=== PATIENT | female | born 1995 | race Caucasian/White ===

== ENCOUNTER → 2019-08-07 17:10 | Outpatient (CLI) | payer OTHER, SELFPAY ==
[2019-08-07 17:35] LABS: Basophils % 0.2 % (0.1-2.0); Eosinophils # 0.1 K/mm3 (0.0-0.4); Eosinophils % 0.8 % (0.1-12.0); Hemoglobin 13.9 g/dL (12.2-16.2); Lymphocytes # 4.1 K/mm3 (0.7-4.5); Lymphocytes % 32.8 % (10-50); Mean Corpuscular HGB Conc 31.6 g/dL (31.8-35.4); Mean Corpuscular Volume 88.6 fl (81-99); Mean Platelet Volume 8.8 fl (7.4-10.4); Monocytes # 0.5 K/mm3 (0.1-1.0); Monocytes % 4.1 % (1.7-9.3); Neutrophils # 7.8 K/mm3 (1.8-7.8); Platelet Count 300 K/mm3 (142-424); Red Blood Count 4.97 M/mm3 (4.20-5.40); Red Cell Distribution Width 13.1 % (11.5-17.5); White Blood Count 12.6 K/mm3 (4.8-10.8)
[2019-08-07 18:59] LABS: Alanine Aminotransferase 27 U/L (12-78); Albumin Level 3.7 gm/dL (3.4-5.0); Alkaline Phosphatase 86 U/L (46-116); Anion Gap 15.3 mEq/L (5-15); Aspartate Amino Transferase 11 U/L (15-37); Bilirubin,Total 0.4 mg/dL (0.2-1.0); Blood Urea Nitrogen 16 mg/dL (7-18); Carbon Dioxide 25 mmol/L (21.0-32.0); Chloride 106 mmol/L (98-107); Chol/HDL Ratio 3.7 (1-3.5); Cholesterol 152 mg/dL (140-200); Estimated Glomerular Filt Rate 103 ml/min (>60); GFR (African American) 124 ML/MIN (>60); Globulin 3.8 gm/dl (1.3-3.2); Glucose 80 mg/dL (74-106); HDL Cholesterol 41 mg/dL (29-89); LDL Cholesterol 98 mg/dL (0-130); Potassium 4.3 mmoL/L (3.5-5.1); Sodium 142 mmol/L (136-145); T4 (Thyroxine) 9.3 ug/dl (4.7-13.3); Thyroid Stimulating Hormone 1.19 uIU/ml (0.358-3.740); Total Protein,Serum 7.5 gm/dL (6.4-8.2); Triglycerides 67 mg/dL (30-200); VLDL Cholesterol 13 mg/dL (0-40)
== END ==
PROVIDERS: Visit Provider Emergency Medicine
DX: G43.909 Migraine, unspecified, not intractable, without status migrainosus (principal); E66.9 Obesity, unspecified; E55.9 Vitamin D deficiency, unspecified
CPT/HCPCS: 80053; 80061; 82652; 84436; 84443; 85025

== ENCOUNTER → 2019-10-07 09:34 | Outpatient (CLI) | payer OTHER, SELFPAY ==
[2019-10-07 10:01] LABS: Basophils % 0.7 % (0.1-2.0); Eosinophils # 0.1 K/mm3 (0.0-0.4); Eosinophils % 2.3 % (0.1-12.0); Hematocrit 43.2 % (37.0-47.0); Hemoglobin 13.8 g/dL (12.2-16.2); Lymphocytes # 2.4 K/mm3 (0.7-4.5); Mean Corpuscular Hemoglobin 27.5 pg (27.0-31.2); Mean Platelet Volume 7.8 fl (7.4-10.4); Monocytes # 0.4 K/mm3 (0.1-1.0); Monocytes % 7.1 % (1.7-9.3); Neutrophils # 2.2 K/mm3 (1.8-7.8); Platelet Count 210 K/mm3 (142-424); Red Blood Count 5.02 M/mm3 (4.20-5.40); Red Cell Distribution Width 13.4 % (11.5-17.5); White Blood Count 5.2 K/mm3 (4.8-10.8)
== END ==
PROVIDERS: Visit Provider Specialist
DX: E66.01 Morbid (severe) obesity due to excess calories (principal); G43.919 Migraine, unspecified, intractable, without status migrainosus; G47.30 Sleep apnea, unspecified; R06.81 Apnea, not elsewhere classified; R06.83 Snoring
CPT/HCPCS: 36415; 85025; 86618

== ENCOUNTER 2021-02-01 09:04 | Emergency (ER) | payer OTHER, SELFPAY ==
[2021-02-01 09:09] VITALS: BP 115/72; PULSE 72; RESP 19; TEMP 36.8; O2SAT 98; BMI 43.0
--- NOTE | 2021-02-01 09:21 | XR_ITS ---
PROCEDURE: XR ANKLE RT MIN 3V CLINICAL INDICATION: pain COMPARISON: No exams were available for comparison FINDINGS: No fracture or dislocation. No lytic or blastic change. There is normal mineralization. The joint spaces are well-preserved. No significant degenerative/arthritic changes. No erosive changes evident. Other findings:Mild lateral soft tissue swelling IMPRESSION: Mild lateral soft tissue swelling otherwise negative Dictated by: Douglas Jackson MD 02/01/2021 09:45 Douglas Jackson MD in OV 02/01/2021 09:45
--- NOTE | 2021-02-01 09:21 | HMH.EDUTC ---
[facility] Disposition Clinical Impression: Low back pain with sciatica Qualifiers: Chronicity: unspecified Back pain laterality: right Sciatica laterality: sciatica of right side Qualified Code(s): M54.41 - Lumbago with sciatica, right side Ankle sprain Qualifiers: Encounter type: initial encounter Involved ligament of ankle: unspecified ligament Laterality: right Qualified Code(s): S93.401A - Sprain of unspecified ligament of right ankle, initial encounter Disposition: Home, Self-Care Condition on Discharge: Good Instructions: Low Back Pain, DI for Low Back Pain, DI for Sciatica, DI for Back Pain With Sciatica Additional Instructions: *Etodolac janes 8 hours with meal as needed for pain/inflammation *Not additional anti-inflammatory like Ibuprofen, motrin, aleve, advil with the above amount of etodolac. You can still take Tylenol every 4 hours as needed if you need something else for pain *Ice 20 minutes every 2 hours for the first 48 hours after the initial injury followed by moist heat every 20 minutes 3-4 times a day to affected area *Muscle relaxer as prescribed as needed for muscle spasms but remember, it WILL cause drowsiness You cannot take it and drive, operate machinery or care for small children. *Keep this area active, no movement leads to more stiffness, However take it easy and avoid heavy lifting pushing or pulling *Follow up with you family doctor if no improvement for further treatment Return if needed Straight to ER if any life threatening symptoms Prescriptions: Etodolac 200 mg PO TID PRN #20 cap PRN Reason: Moderate Pain Transmission Status: Pending to [facility] methylPREDNISolone [Medrol 4mg tab] 4 mg PO DIRECTED #21 tab Transmission Status: Pending to [facility] methocarbamoL [Methocarbamol 500mg Tablet] 500 mg PO BID PRN #10 tab PRN Reason: Muscle Spasm Transmission Status: Pending to [facility] Referrals: Provider,Referral, MD [Primary Care Provider] - As needed Time of Disposition: 09:57 Medical Decision Making - Joseph Inquiry Pt receiving controlled substance: No Joseph was queried for this patient: No Vital Signs: 02/01/21 09:09 Temperature 98.3 F Temperature Source Oral Pulse Rate [Right] 72 Respiratory Rate 19 Blood Pressure [Right Arm] 115/72 Blood Pressure Mean [Right Arm] 86 Blood Pressure Source [Right Arm] Automatic Cuff Blood Pressure Position [Right Arm] Sitting 02 Sat by Pulse Oximetry 98 Oxygen Delivery Method Room Air - Lab Data Lab results reviewed: Yes: I reviewed the patient's lab results. Lab Results 02/01/21 09:18: [facility] Negative Orders (Tests/Meds): ORDERS Category Date Time Status XR ankle RT min 3V Stat Exams 02/01/21 09:21 Taken - Radiology Data #1 Image(s): Ankle Image Reviewed: Yes I have reviewed radiologist's interpretation IMPRESSION: Mild lateral soft tissue swelling otherwise negative Medical Decision Narrative: Discussed injections with patient and she declined at this time [facility] HPI - General Stated complaint: AO [id number] back injury Time Seen by Provider: 02/01/21 09:21 Mode of Arrival: Ambulatory Source of Information: Patient Limitations: No Limitations Description of Symptoms (Recalled from Triage Doc. by RN): pt states she fell at work. she is now c/o pain in her lower back radiating down to her R foot. pt fell on 01/26/21. 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
[2021-02-01 09:29] LABS: UTC Pregnancy Test, Urine Negative (Negative)
[2021-02-01 09:55] VITALS: BP 115/72; PULSE 72; RESP 18; TEMP 36.8
== END 2021-02-01 10:00 | disposition home or self-care (01) ==
PROVIDERS: Emergency Provider Nurse Practitioner
DX: M54.41 Lumbago with sciatica, right side (principal); S93.401A Sprain of unspecified ligament of right ankle, initial encounter; W01.0XXA Fall on same level from slipping, tripping and stumbling without subsequent striking against object, initial encounter; Y92.69 Other specified industrial and construction area as the place of occurrence of the external cause; Y99.0 Civilian activity done for income or pay; F41.9 Anxiety disorder, unspecified; F17.210 Nicotine dependence, cigarettes, uncomplicated
CPT/HCPCS: 73610; 81025; 99202; G0463

== ENCOUNTER → 2022-01-06 07:12 | Outpatient (CLI) | payer OTHER, SELFPAY ==
[2022-01-06 07:55] LABS: Basophils # 0.2 K/mm3 (0-0.2); Basophils % 1.1 % (0.1-2.0); Eosinophils # 0.1 K/mm3 (0.0-0.4); Eosinophils % 0.9 % (0.1-12.0); Hematocrit 36.8 % (37.0-47.0); Hemoglobin 12.3 g/dL (12.2-16.2); Lymphocytes # 3.5 K/mm3 (0.7-4.5); Lymphocytes % 25.4 % (10-50); Mean Corpuscular HGB Conc 33.3 g/dL (31.8-35.4); Mean Corpuscular Hemoglobin 29.2 pg (27.0-31.2); Mean Corpuscular Volume 87.6 fl (81-99); Mean Platelet Volume 8.2 fl (7.4-10.4); Monocytes # 0.5 K/mm3 (0.1-1.0); Monocytes % 3.7 % (1.7-9.3); Neutrophils # 9.5 K/mm3 (1.8-7.8); Neutrophils % 68.8 % (37.0-80.0); Platelet Count 217 K/mm3 (142-424); Red Cell Distribution Width 13.6 % (11.5-17.5); White Blood Count 13.8 K/mm3 (4.8-10.8)
[2022-01-06 09:26] LABS: HCG,Quantitative 83172 mIU/ml (0-5.42)
[2022-01-07 06:21] LABS: HIV Screen 4th Generation wRfx Non Reactive (Non Reactive)
[2022-01-07 08:23] LABS: Hepatitis B Surface Antigen Negative (Negative); Hepatitis C Antibody <0.1 s/co ratio (0.0-0.9); Rubella Antibodies, IgG 6.22 index (Immune >0.99)
[2022-01-07 10:19] LABS: Rapid Plasma Reagin Ab Titer Non Reactive (NonRea<1:1)
== END ==
PROVIDERS: Visit Provider Obstetrics & Gynecology
DX: Z34.90 Encounter for supervision of normal pregnancy, unspecified, unspecified trimester (principal); N92.6 Irregular menstruation, unspecified
CPT/HCPCS: 36415; 84702; 85025; 86592; 86703; 86762; 86850; 87340; 87380; G0432

== ENCOUNTER → 2022-01-31 15:26 | Outpatient (CLI) | payer OTHER, SELFPAY | PROVIDERS: Visit Provider Obstetrics & Gynecology | DX: Z31.430 Encounter of female for testing for genetic disease carrier status for procreative management (principal); Z36.0 Encounter for antenatal screening for chromosomal anomalies; O28.3 Abnormal ultrasonic finding on antenatal screening of mother | CPT/HCPCS: 36415 ==

== ENCOUNTER → 2022-03-30 13:56 | Outpatient (CLI) | payer OTHER, SELFPAY ==
--- NOTE | 2022-03-30 14:03 | US_ITS ---
FINAL REPORT CLINICAL HISTORY: OB complete; morbid obesity FINDINGS: Exam is suboptimal secondary to patient body habitus. There is a single live intrauterine gestation. Presentation is breech. The cervix is closed and measures 3.4 cm. Placenta is fundal and grade 1. The fetus is active. Cardiac activity is confirmed at 150 bpm. Three-vessel cord with satisfactory umbilical cord insertion. Four-chamber heart is noted. brain and ventricles are unremarkable. Chest and diaphragm are unremarkable. ABDOMEN: Both kidneys are unremarkable. Stomach is unremarkable. SPINE: No anomalies identified. Both arms and legs noted. AMNIOTIC FLUID: Appropriate amount. MEASUREMENTS: ULTRASOUND AGE: 21 weeks 2 days. GESTATION AGE: 20 weeks 6 days. ESTIMATED WEIGHT: 407 g GROWTH PERCENTILE: 65% BPD: 5.0 cm consistent with 21 weeks 2 days. OFD: 7 cm consistent with 22 weeks 4 days. HC: 19.1 cm consistent with 21 weeks 3 days. AC: 16.4 cm consistent with 21 weeks 3 days. FL: 3.5 cm consistent with 21 weeks 0 days. CEREBELLUM: 2.0 cm consistent with 20 weeks 5 days. HUMERUS: 3.4 cm consistent with 21 weeks 5 days. HC/AC: 1.17 CI: 72% FL/BPD: 69% FL/AC: 21% IMPRESSION: Single living IUP with an ultrasound age of 21 weeks 2 days. Reviewed, Interpreted and Dictated by Reinier Xiao III, MD Transcribed by Jose Campos Authenticated and [facility]
== END ==
PROVIDERS: PCP Obstetrics & Gynecology; Visit Provider Obstetrics & Gynecology
DX: Z34.90 Encounter for supervision of normal pregnancy, unspecified, unspecified trimester (principal); Z3A.20 20 weeks gestation of pregnancy
CPT/HCPCS: 76811

== ENCOUNTER → 2022-05-12 08:23 | Outpatient (CLI) | payer OTHER, SELFPAY ==
[2022-05-12 08:39] LABS: Basophils # 0.1 K/mm3 (0-0.2); Basophils % 0.5 % (0.1-2.0); Eosinophils # 0.1 K/mm3 (0.0-0.4); Eosinophils % 0.7 % (0.1-12.0); Hematocrit 33.1 % (37.0-47.0); Hemoglobin 11.3 g/dL (12.2-16.2); Lymphocytes # 3.7 K/mm3 (0.7-4.5); Lymphocytes % 22.8 % (10-50); Mean Corpuscular HGB Conc 34.1 g/dL (31.8-35.4); Mean Corpuscular Hemoglobin 30.4 pg (27.0-31.2); Mean Corpuscular Volume 89.2 fl (81-99); Mean Platelet Volume 8.1 fl (7.4-10.4); Monocytes # 0.6 K/mm3 (0.1-1.0); Monocytes % 3.5 % (1.7-9.3); Neutrophils # 11.7 K/mm3 (1.8-7.8); Neutrophils % 72.5 % (37.0-80.0); Platelet Count 301 K/mm3 (142-424); Red Blood Count 3.71 M/mm3 (4.20-5.40); Red Cell Distribution Width 13.4 % (11.5-17.5); White Blood Count 16.1 K/mm3 (4.8-10.8)
[2022-05-12 08:41] LABS: MANUAL DIFFERENTIAL MANUAL DIFFERENTIAL (MANUAL DIFF)
[2022-05-12 08:50] LABS: Glucose,Fasting 87 mg/dl (74-100)
[2022-05-12 09:54] LABS: Lymphocytes % 24 % (10-50); Monocytes % 4 % (2-9); Neutrophils % 72 % (42-76); Platelet Estimate Normal; RBC Morphology Normal; Total Cells Counted 100
[2022-05-12 10:03] LABS: Glucose 1 Hour 142 mg/dL (74-100)
== END ==
PROVIDERS: Visit Provider Obstetrics & Gynecology
DX: Z34.90 Encounter for supervision of normal pregnancy, unspecified, unspecified trimester (principal)
CPT/HCPCS: 36415; 82951; 85007; 85025

== ENCOUNTER → 2022-05-24 08:24 | Outpatient (CLI) | payer OTHER, SELFPAY | PROVIDERS: Visit Provider Obstetrics & Gynecology | DX: Z34.90 Encounter for supervision of normal pregnancy, unspecified, unspecified trimester (principal) | CPT/HCPCS: 36415 ==

== ENCOUNTER 2022-05-27 21:18 | Outpatient (CLI) | payer OTHER, SELFPAY ==
[2022-05-27 21:44] VITALS: BMI 42.4
[2022-05-27 21:50] VITALS: BP 107/58; PULSE 91; RESP 18; TEMP 36.9; O2SAT 97; BMI 42.4
[2022-05-27 22:16] LABS: Microscopic, Urine URINE MICROSCOPIC (MICROSCOPIC)
[2022-05-27 22:19] LABS: Appearance,Urine SL CLOUDY (Clear); Bilirubin,Urine Negative (Negative); Blood, Urine Negative (Negative); Color,Urine YELLOW (Yellow); Glucose,Urine (UA) Negative (Negative); Ketones,Urine Negative (Negative); Leukocyte Esterase,Urine Negative (Negative); Nitrate,Urine Negative (Negative); Protein,Urine Negative (Negative); Specific Gravity, Urine 1.025 (1.005-1.030)
[2022-05-27 22:29] LABS: Amphetamine/Metha Screen,Urine Negative ng/ml (<1000)
[2022-05-27 22:30] LABS: Barbiturates Screen,Urine Negative ng/ml (<200)
[2022-05-27 22:31] LABS: Benzodiazepines Screen,Urine Negative ng/ml (<200); Cannabinoid Screen,Urine Negative ng/ml (<50)
[2022-05-27 22:32] LABS: Cocaine Screen,Urine Negative ng/ml (<300)
[2022-05-27 22:33] LABS: Methadone Screen,Urine Negative ng/ml (<300); Phencyclidine Screen,Urine Negative ng/ml (<25)
[2022-05-27 22:34] LABS: Opiate Screen,Urine Negative ng/ml (<300)
[2022-05-27 22:53] LABS: Bacteria,Urine 4+ /lpf; Calcium Oxalate Crystals,Urine 1+ /lpf; Mucus,Urine 1+ /lpf; RBC,Urine Occasional #/hpf (0-3)
== END 2022-05-27 22:29 | disposition home or self-care (01) ==
LOC: OBOUT 21:22 → OB 21:23
PROVIDERS: PCP Obstetrics & Gynecology; Visit Provider Obstetrics & Gynecology
DX: O36.8130 Decreased fetal movements, third trimester, not applicable or unspecified (principal); Z3A.29 29 weeks gestation of pregnancy
CPT/HCPCS: 59025; 80305; 81001; 87086; 87088; 87186; G0463

== ENCOUNTER 2022-06-02 09:27 | Outpatient (CLI) | payer OTHER, SELFPAY ==
[2022-06-02 10:23] VITALS: BP 119/61; PULSE 92; RESP 18; TEMP 36.3; O2SAT 99
[2022-06-02 10:33] VITALS: BP 120/81; PULSE 72; RESP 18; O2SAT 99
== END 2022-06-02 10:33 | disposition home or self-care (01) ==
LOC: INF 09:28
PROVIDERS: Visit Provider Obstetrics & Gynecology
DX: N39.0 Urinary tract infection, site not specified (principal); B96.1 Klebsiella pneumoniae [K. pneumoniae] as the cause of diseases classified elsewhere
CPT/HCPCS: 96372; J1335

== ENCOUNTER → 2022-06-15 13:05 | Outpatient (CLI) | payer OTHER, SELFPAY ==
--- NOTE | 2022-06-15 13:05 | US_ITS ---
FINAL REPORT CLINICAL HISTORY: LGA/ SRIDHAR FINDINGS: There is a single live intrauterine gestation. Presentation is cephalic. The cervix is closed and measures 0.1 cm. Placenta is posterior, grade 2. Fetus is active. Amniotic fluid index is within normal limits. Heart rate is detected at 135 beats per minute. Amniotic fluid index is within normal limits. MEASUREMENTS: ULTRASOUND AGE: 34 weeks 4 days. GESTATION AGE: 31 weeks 6 days. ESTIMATED WEIGHT: 1925 g GROWTH PERCENTILE: 50 % BPD: 8.26 cm corresponding to 33 weeks 2 days. OFD: 10.58 cm corresponding to 33 weeks 3 days. HC: 29.82 cm corresponding to 33 weeks 1 day. AC: 28.39 cm corresponding to 32 weeks 3 days. FL: 6.01 cm corresponding to 31 weeks 2 days. HC/AC: 1.05 CI: 78% FL/BPD: 73% FL/AC: 21% BREATHIN MOVEMENT: 2 TONE: 2 FLUID VOLUME: 2 BPP SCORE: 8 IMPRESSION: Single living IUP with an ultrasound age of 32 weeks days. BPP SCORE: 8/8 Reviewed, Interpreted and Dictated by Reinier Xiao III, MD Transcribed by Cece Hill Authenticated and [facility]
== END ==
PROVIDERS: Visit Provider Obstetrics & Gynecology
DX: O36.60X0 Maternal care for excessive fetal growth, unspecified trimester, not applicable or unspecified (principal)
CPT/HCPCS: 76816; 76819

== ENCOUNTER → 2022-07-25 10:48 | Outpatient (CLI) | payer OTHER, SELFPAY ==
--- NOTE | 2022-07-25 10:48 | US_ITS ---
FINAL REPORT CLINICAL HISTORY: lga FINDINGS: There is a single live intrauterine gestation. Presentation is cephalic. The cervix measures 3.12 cm. Placenta is posterior/lateral/fundal, grade 2. Heart rate is 140 beats per minute. Fetus is active. AMNIOTIC FLUID: Appropriate amount. SRIDHAR: 14.74 cm MEASUREMENTS: ULTRASOUND AGE: 38 day 0 days. GESTATION AGE: 37 days 4 days. ESTIMATED WEIGHT: 3286 g GROWTH PERCENTILE: 63% LMP percentile BPD: 9.2 cm corresponding with 37 weeks 4 days. OFD: 12.3 cm. HC: 34.2 cm corresponding with 39 weeks 3 days. AC: 34.1 cm corresponding with 38 weeks 0 days. FL: 7.1 cm corresponding with 36 weeks 4 days. HC/AC: 1.00 CI: 75% FL/BPD: 77% FL/AC: 21% IMPRESSION: Single living IUP with an ultrasound age of 38 weeks 0 days. SRIDHAR of 14.74 cm Reviewed, Interpreted and Dictated by Didi Tyson MD Transcribed by Corie Boucher Authenticated and [facility]
== END ==
PROVIDERS: PCP Obstetrics & Gynecology; Visit Provider Obstetrics & Gynecology
DX: O36.60X0 Maternal care for excessive fetal growth, unspecified trimester, not applicable or unspecified (principal)
CPT/HCPCS: 76816

== ENCOUNTER → 2022-07-28 10:57 | Outpatient (CLI) | payer OTHER, SELFPAY ==
[2022-07-28 12:19] LABS: Basophils # 0.1 K/mm3 (0-0.2); Basophils % 0.8 % (0.1-2.0); Eosinophils # 0.1 K/mm3 (0.0-0.4); Eosinophils % 0.6 % (0.1-12.0); Hematocrit 36.5 % (37.0-47.0); Hemoglobin 11.5 g/dL (12.2-16.2); Lymphocytes # 3.6 K/mm3 (0.7-4.5); Lymphocytes % 25.3 % (10-50); Mean Corpuscular HGB Conc 31.5 g/dL (31.8-35.4); Mean Corpuscular Hemoglobin 28.8 pg (27.0-31.2); Mean Corpuscular Volume 91.4 fl (81-99); Mean Platelet Volume 9.4 fl (7.4-10.4); Monocytes # 0.5 K/mm3 (0.1-1.0); Monocytes % 3.6 % (1.7-9.3); Neutrophils % 69.7 % (37.0-80.0); Platelet Count 274 K/mm3 (142-424); Red Blood Count 3.99 M/mm3 (4.20-5.40); Red Cell Distribution Width 13.8 % (11.5-17.5); White Blood Count 14.3 K/mm3 (4.8-10.8)
[2022-07-28 13:29] LABS: Alanine Aminotransferase 11 U/L (12-78); Albumin Level 3.3 g/dl (3.5-5.0); Albumin/Globulin Ratio 1.2 (1.1-1.8); Alkaline Phosphatase 205 U/L (38-126); Anion Gap 5.3 mEq/L (5-15); Aspartate Amino Transferase 22 U/L (14-36); Blood Urea Nitrogen 11 mg/dl (7-17); Calcium 9.2 mg/dl (8.4-10.2); Carbon Dioxide 21 mmol/L (22.0-30.0); Chloride 110 mmol/L (98-107); Estimated Glomerular Filt Rate 148 ml/min (>60); GFR (African American) 179 ML/MIN (>60); Globulin 2.7 g/dL (1.3-3.2); Glucose 70 mg/dl (74-100); Potassium 4.3 mmoL/L (3.5-5.1); Sodium 132 mmol/L (136-145)
[2022-07-28 13:30] LABS: Bilirubin,Total 0.1 mg/dl (0.2-1.3)
== END ==
PROVIDERS: Visit Provider Obstetrics & Gynecology
DX: Z34.90 Encounter for supervision of normal pregnancy, unspecified, unspecified trimester (principal); Z3A.38 38 weeks gestation of pregnancy
CPT/HCPCS: 36415; 80053; 85025

== ENCOUNTER 2022-08-04 04:47 | Inpatient (IN) | payer OTHER, SELFPAY ==
[2022-08-04] VITALS (30 sets, daily range): BP systolic 104–150; BP diastolic 44–86; PULSE 69–103; RESP 12–20; TEMP 36.2–36.8; O2SAT 95–100; BMI 44.7
[2022-08-04 05:31] LABS: Coronavirus 19, PCR Not Detected (NotDetected); Influenza A, PCR Not Detected (NotDetected); Influenza B, PCR Not Detected (NotDetected)
[2022-08-04 05:31] LABS: Microscopic, Urine URINE MICROSCOPIC (MICROSCOPIC)
[2022-08-04 05:46] LABS: Basophils # 0.1 K/mm3 (0-0.2); Basophils % 0.4 % (0.1-2.0); Eosinophils # 0.2 K/mm3 (0.0-0.4); Eosinophils % 0.9 % (0.1-12.0); Hematocrit 34.5 % (37.0-47.0); Hemoglobin 11.6 g/dL (12.2-16.2); Lymphocytes # 4.4 K/mm3 (0.7-4.5); Lymphocytes % 24.2 % (10-50); Mean Corpuscular HGB Conc 33.7 g/dL (31.8-35.4); Mean Corpuscular Hemoglobin 29.3 pg (27.0-31.2); Mean Platelet Volume 9.7 fl (7.4-10.4); Monocytes % 5.3 % (1.7-9.3); Neutrophils # 12.5 K/mm3 (1.8-7.8); Neutrophils % 69.2 % (37.0-80.0); Platelet Count 279 K/mm3 (142-424); Red Blood Count 3.96 M/mm3 (4.20-5.40); Red Cell Distribution Width 13.7 % (11.5-17.5)
[2022-08-04 05:49] LABS: Appearance,Urine CLEAR (Clear); Bilirubin,Urine Negative (Negative); Blood, Urine Negative (Negative); Color,Urine YELLOW (Yellow); Glucose,Urine (UA) Negative (Negative); Ketones,Urine Negative (Negative); Leukocyte Esterase,Urine Negative (Negative); Nitrate,Urine Negative (Negative); PH,Urine 6.5 (5.0-8.5); Protein,Urine Negative (Negative); Specific Gravity, Urine 1.025 (1.005-1.030); Urobilinogen,Urine 0.2 EU/dl (0.2)
[2022-08-04 05:51] LABS: MANUAL DIFFERENTIAL MANUAL DIFFERENTIAL (MANUAL DIFF)
[2022-08-04 06:01] LABS: Barbiturates Screen,Urine Negative ng/ml (<200)
[2022-08-04 06:02] LABS: Amphetamine/Metha Screen,Urine Negative ng/ml (<1000); Benzodiazepines Screen,Urine Negative ng/ml (<200)
[2022-08-04 06:03] LABS: Cannabinoid Screen,Urine Negative ng/ml (<50)
[2022-08-04 06:04] LABS: Cocaine Screen,Urine Negative ng/ml (<300); Methadone Screen,Urine Negative ng/ml (<300)
[2022-08-04 06:05] LABS: Opiate Screen,Urine Negative ng/ml (<300)
[2022-08-04 06:06] LABS: Phencyclidine Screen,Urine Negative ng/ml (<25)
[2022-08-04 06:32] LABS: Bacteria,Urine 1+ /lpf; Mucus,Urine 1+ /lpf; WBC,Urine Occasional #/hpf (0-3)
--- NOTE | 2022-08-04 07:35 | HMH.PHAINT1 ---
Pharmacy Intervention Comments: MEDICATION RECONCILIATION COMPLETED ON PATIENT USING EXTERNAL FILL HISTORY FROM PHARMACY. -INDY CARPENTER, DAOD
[2022-08-04 08:02] LABS: Cord Blood PH 7.32 (7.35-7.45)
--- NOTE | 2022-08-04 08:57 | P.PN_ITS ---
[facility] Disclaimer: The information contained in this section may have been updated after the patient was seen, as this information can be updated by other users. Medical History Gestational diabetes A2 No significant past medical history Family History Other No significant family history Social History (Updated 08/04/22 @ 06:01 by Giuliana Cannon RN) Smoking Status: Current every day smoker tobacco type: cigarettes packs per day: 1 alcohol intake: never substance use type: former substance user and marijuana current occupational status: unemployed Travel in the last 8 weeks: None household members: family housing: apartment [facility] Anesthesia Checklist Patient Identification Patient Identification: Verbal (Name & ) Structural Data Admitted From: Inpatient Planned Operative Procedure/s: c/section Consent for Planned Operative Procedure(s) Verified: Yes Airway Assessment C-Spine Mobility Assessed: Yes TMJ Mobility Assessed: Yes Dentition: Good Dentition Neurological Assessment Level of Consciousness: Awake, Alert and Appropriate Anesthesia Plan Anesthesia Risk discussed: Yes Anesthesia Plan: Verified ASA Class: II Anesthesia Type: Spinal
--- NOTE | 2022-08-04 08:58 | EXP.ANES.I ---
[facility] Anesthesia Record Part I Anesthesia Record I Intake, IV Amount: 1,700 Estimated blood loss (mL): 900 Urine output (mL): 250 Blood Pressure: 131/76 SaO2: 100 Pulse Rate: 79 Respiratory Rate: 12 Temperature: 97.7 F Patient is:: Awake and Stable Stable to PACU at:: 08:50
--- NOTE | 2022-08-04 09:18 | EXP.OB.APHP ---
OB - H&P: HPI Antepartum History of Present Illness Chief complaint: Scheduled repeat History of present illness: Ms Nicolette White is a 26 yo at 39 weeks 0 days, based off of first trimester ultrasound, with EDC 08/11/22 who presents to [facility] for scheduled repeat and tubal ligation. She is complete with childbearing and desires permanent sterilization. History of Present Criteria for establishing EDC:: based on 1st trimester US only care: good care Ultrasounds: normal mid trimester US Obstetrical complications: gestational diabetes (GDMA2) Labs Blood type: A (+) positive Rubella: immune RPR/VDRL: nonreactive HBsAG: negative [facility] Disclaimer: The information contained in this section may have been updated after the patient was seen, as this information can be updated by other users. Medical History (Updated 08/04/22 @ 09:25 by Lucretia Saleh DO) Gestational diabetes No significant past medical history Request for sterilization Family History Other No significant family history Social History Smoking Status: Current every day smoker tobacco type: cigarettes packs per day: 1 alcohol intake: never substance use type: former substance user and marijuana current occupational status: unemployed Travel in the last 8 weeks: None household members: family housing: apartment Review of Systems Review of Systems Review of systems:: pertinent systems reviewed and negative unless documented below Meds Home Medications and Allergies Home Medications Medication Instructions Recorded Confirmed Type ferrous sulfate 325 mg (65 mg 325 mg PO Q48H Supplement 06/02/22 08/04/22 History iron) tablet,delayed release prenat.vits,marie,[id number]-sftjv 1 tab PO DAILY Supplement 06/02/22 08/04/22 History glyburide 5 mg tablet 5 mg PO DAILY Diabetes 08/04/22 08/04/22 History New Prescriptions to Start Prescriptions: Allergies Allergy/AdvReac Type Severity Reaction Status Date / Time Penicillins Allergy Severe Swelling Verified 07/28/22 09:38 of Lip/Tongue/Throat OB - H&P: Exam Physical Exam Vital signs: Temp Pulse Resp BP Pulse Ox 97.7 F 79 12 131/76 99 08/04/22 08:59 08/04/22 08:59 08/04/22 08:59 08/04/22 08:59 08/04/22 05:56 Constitutional no acute distress Routine HEENT Exam Head: Present normocephalic and atraumatic Eye: Absent conjunctivae pink ENT: Present mucous membranes moist Routine Neck Exam Present full ROM Routine Respiratory Exam Present CTA bilaterally and normal respiratory effort Routine Cardiovascular Exam Present RRR Routine Abdominal Exam Present soft (Gravid); Absent tenderness Routine Rectal Exam Patient deferred: visual exam Routine Exam External: Present normal urethra appearance; Absent erythema, swelling or lesions Routine Extremities Exam Present edema (2+ bilateral lower extremity edema) and full ROM; Absent calf tenderness Routine Neurological Exam Present alert, oriented X3 and moving all extremities Detailed Labor and Delivery Exam Membranes: intact Baseline heart rate: 120 monitor accelerations: Present monitor decelerations: None oysterman variability: Moderate (11-25) OB - Results Labs Labs: Short CBC 08/04/22 Range/Units 05:20 WBC 18.0 H (4.8-10.8) K/mm3 Hgb 11.6 L (12.2-16.2) g/dL Hct 34.5 L (37.0-47.0) % Plt Count 279 (142-424) K/mm3 Urine 08/04/22 Range/Units 05:02 Urine Color Yellow (Yellow) Urine Appearance Clear (Clear) Urine pH 6.5 (5.0-8.5) Ur Specific [place] 1.025 (1.005-1.030) Urine Protein Negative (Negative) Urine Glucose (UA) Negative (Negative) OB - A/P Antepartum (1) : Status: Acute (2) History of : Status: Acute (3) Gestational
[2022-08-04 09:21] LABS: POC Glucose,Bedside 94 (70-110)
--- NOTE | 2022-08-04 09:26 | EXP.OP.NOTE ---
Date of procedure: 08/04/22 Pre-op Diagnosis:: 1. IUP at 39w0d 2. History of x 1 3. GDMA2 4. Morbid obesity 5. Marijuana use 6. Anxiety 7. Depression 8. Tobacco user 9. Complete family status, desires permanent sterilization Post-op Diagnosis:: 1. IUP at 39w0d 2. History of x 1 3. GDMA2 4. Morbid obesity 5. Marijuana use 6. Anxiety 7. Depression 8. Tobacco user 9. Complete family status, desires permanent sterilization Procedure performed:: Repeat low transverse section, bilateral partial salpingectomy Surgeon:: Lucretia Saleh DO Derrick Boat Captain(s):: Chantell Tsai MD WAX SPECIALIST:: Orlin Rizzo Anesthesia: spinal Estimated blood loss (mL): 900 Clinical Note:: Ms Nicolette White is a 26 yo at 39 weeks 0 days, based off of first trimester ultrasound, with EDC 08/11/22 who presents to [facility] for scheduled repeat and tubal ligation. She is complete with childbearing and desires permanent sterilization. Operative findings:: 1. Grossly normal appearing uterus, bilateral fallopian tubes and ovaries 2. Live female baby weighing 7 lb 14 oz with APGARs 9 (1 min), 9 (5 min) 3. Grossly normal appearing placenta and umbilical cord Operative note:: The risks, benefits and alternatives of the procedure were reviewed with the patient. Informed consent was obtained. Patient was taken to the operating room where epidural was bolused. The patient received Clindamycin and Gentamicin preoperatively. Patient was placed in dorsal supine position with a leftward tilt. SCDs in place. Shah catheter had been placed and was draining clear urine prior to the start of the procedure. heart tones were obtained. Patient was then prepped and draped in normal sterile fashion. Allis clamp test was performed to ensure adequate anesthesia. A Pfannenstiel skin incision was made 2 cm above pubic symphysis. This was carried through to underlying layer of fascia. Fascia was incised in midline, extended laterally with Rodriguez scissors. Superior aspect of fascial incision was grasped with two Chiquis clamps, elevated up, and rectus muscle dissected off bluntly and sharply with Rordiguez scissors. The retcus muscle was then in the midline and the peritoneum was entered bluntly with a digit. Peritoneal incision was then extended superiorly and inferiorly with good visualization of the bladder. Tian retractor was inserted. The lower uterine segment was incised in a transverse fashion. Clear amniotic fluid was noted. Head was delivered without difficulty. Remainder of body was delivered without difficulty. Mouth and nares were bulb suctioned. Spontaneous cry was noted. Delayed cord clamping was performed for 60 seconds. The umbilical cord was clamped and cut. The infant was handed to awaiting pediatric staff in stable condition. Dr. Rush was present. Apgars were 9(1 min), 9(5 min). Section of cord was collected for cord gases. Cord blood was obtained. Gentle traction on the umbilical cord and uterine fundal massage delivered the placenta. Placenta was intact. Placenta will be sent to pathology for review. Uterus was cleared of all clots and debris with a moist laparotomy sponge. Corners of the uterine incision were grasped with Allis clamps. The uterine incision was reapproximated with # 1 Vicryl suture in a running, locked stitch. Second layer of the same stitch was used to imbricate the incision. Excellent hemostasis was noted. Posterior cul-de-sac was cleaned with moist laparotomy sponge. (Uterus returned to the abdomen) Gutters cleared of all clots and debris with a moist laparotomy sponge. Attention was then turned to the right fallopian tube, which was grasped with a Julia clamp and avascular space below the tube was entered using a hemostat. The tube was doubly clamped using hemostat and the portion between the clamps was removed using Metzenbaum scissors. The proximal and distal ends of the tube were doubly suture ligated with 0 Chromic. Same
[2022-08-04 09:41] LABS: Lymphocytes % 37 % (10-50); Monocytes % 1 % (2-9); Neutrophils % 62 % (42-76); Platelet Estimate Normal; RBC Morphology Normal; Total Cells Counted 100
--- NOTE | 2022-08-04 10:21 | SUR.PHASEI ---
0919- detailed report called to talya marsh by talya guerrier 09- pt left in stable condition with talya marsh in pt room. All VSS, dressings CDI, talya marsh confirmed fundal placement, bed in lowest position with side rails up. Family at bedside
--- NOTE | 2022-08-04 11:08 | SUR.OPER ---
0751-viable infant female born at this time
--- NOTE | 2022-08-04 11:57 | EXP.ANES.II ---
[facility] Anesthesia Record Part II Anesthesia Record Part II Discharge Time: 09:20 Destination: Obstetric PACU nurse assessment reviewed?: Yes Patient Condition:: Good Anesthesia Complications:: None Swallowing reflex intact?: Yes Cyanosis?: No Blood Pressure: 148/79 Pulse Rate: 71 Temperature: 97.4 F Mental Status: Alert & Oriented Pain level:: 5 Nausea and/or vomitting:: None Intake, IV Amount: 0
[2022-08-04 12:16] LABS: Microscopic,Cath URINE MICROSCOPIC (MICROSCOPIC)
[2022-08-04 12:45] LABS: Appearance,Urine/Cath CLEAR (Clear); Bilirubin,Cath Negative (Negative); Blood, Urine/Cath Negative (Negative); Color,Urine/Cath YELLOW (Yellow); Glucose,Urine/Cath (UA) Negative (Negative); Ketones,Urine/Cath Negative (Negative); Leukocyte Esterase,Cath Negative (Negative); Nitrate,Cath Negative (Negative); PH,Urine/Cath 6.5 (5.0-8.5); Protein,Urine/Cath Negative (Negative); Specific Gravity, Urine/Cath 1.025 (1.005-1.030); Urobilinogen,Cath 0.2 EU/dl (0.2)
[2022-08-04 12:56] LABS: RBC,Urine/Cath Occasional # /hpf (0-3)
[2022-08-04 12:57] LABS: Bacteria,Urine/Cath 1+ /lpf; Mucus,Urine/Cath 2+ /lpf
[2022-08-05 04:57] VITALS: BP 113/48; PULSE 82; RESP 19; TEMP 36.8; O2SAT 99
[2022-08-05 08:25] LABS: Basophils # 0.1 K/mm3 (0-0.2); Basophils % 0.5 % (0.1-2.0); Eosinophils # 0.1 K/mm3 (0.0-0.4); Eosinophils % 0.7 % (0.1-12.0); Hematocrit 32.6 % (37.0-47.0); Hemoglobin 10.4 g/dL (12.2-16.2); Lymphocytes # 3.7 K/mm3 (0.7-4.5); Lymphocytes % 24.9 % (10-50); Mean Corpuscular HGB Conc 31.9 g/dL (31.8-35.4); Mean Corpuscular Hemoglobin 28.9 pg (27.0-31.2); Mean Corpuscular Volume 90.8 fl (81-99); Monocytes # 0.6 K/mm3 (0.1-1.0); Monocytes % 3.8 % (1.7-9.3); Neutrophils # 10.4 K/mm3 (1.8-7.8); Neutrophils % 70.1 % (37.0-80.0); Platelet Count 258 K/mm3 (142-424); Red Blood Count 3.59 M/mm3 (4.20-5.40); White Blood Count 14.9 K/mm3 (4.8-10.8)
--- NOTE | 2022-08-05 08:40 | EXP.DC.SUM ---
General Admission date:: 08/04/22 Discharge date: 08/05/22 HPI HPI HPI: POD # 1 s/p RLTCS Sitting comfortably in bed. Pain is controlled with PO medication. She is bottle/formula feeding. Light lochia. Tolerating regular diet. Voiding without difficulty and passing flatus. Denies fever/chills, chest pain and shortness of breath. Denies headaches. Admits to lower extremity swelling. Hospital Course Hospital Course Hospital Course: Ms Nicolette White is a 26 yo at 39 weeks 0 days, based off of first trimester ultrasound, with EDC 08/11/22 who presents to [facility] for scheduled repeat and tubal ligation. History of x 1. She is complete with childbearing and desires permanent sterilization. She underwent a repeat with bilateral partial salpigectomy on 08/04/22. She delivered a live female baby, weighing 7 lb 14 oz, with APGARs 9 (1min), 9 (5 min). EBL was 900 mL. POD# 1 she was doing well. Pain was controlled. She was formula feeding. Light lochia. Voiding without difficulty and passing flatus. She was tolerating regular diet. Heart was regular rate and rhythm. Lungs clear to auscultation. Abdomen was soft, nontender, uterine fundus firm and below umbilicus. Vital signs were stable, afebrile. She had 2+ bilateral lower extremity edema. No calf tenderness to palpation. She received Venofer 200 mg IV x 1 dose. 1.5 cm furuncle was noted on inside of right thigh prior to . Patient admits it is less painful today. Instructed her to use warm compresses 3 x daily. If no improvement over the weekend she was instructed to call Monday. She requested to go home later today. She was discharged to home. Normal hospital course. 08/04/22: Hgb 11.6, Hct 34.5 08/05/22: Hgb 10.4, Hct 32.6 Exam Data for Last 24 hours Vital signs and Labs for Last 24 Hours: Temp Pulse Resp BP Pulse Ox 98.3 F 82 19 113/48 L 99 08/05/22 04:57 08/05/22 04:57 08/05/22 04:57 08/05/22 04:57 08/05/22 04:57 Laboratory Results - last 24 hr 08/04/22 05:20: Blood Type A Positive, Antibody Screen Negative, Crossmatch (AHG) See Detail 08/04/22 05:20: Total Counted 100, Neutrophils % (Manual) 62, Lymphocytes % (Manual) 37, Monocytes % (Manual) 1 L, Platelet Estimate Normal, RBC Morphology Normal 08/04/22 07:35: Urine Color Yellow, Urine Appearance Clear, Urine pH 6.5, Ur Specific [place] 1.025, Urine Protein Negative, Urine Glucose (UA) Negative, Urine Ketones Negative, Urine Blood Negative, Urine Nitrate Negative, Urine Bilirubin Negative, Urine Urobilinogen 0.2, Ur Leukocyte Esterase Negative, Urine RBC Occasional, Urine WBC 3-5, Ur Squamous Epith Cells 5-10, Urine Bacteria 1+ 08/04/22 09:13: POC Glucose 94 08/05/22 08:13: WBC 14.9 H, RBC 3.59 L, Hgb 10.4 L, Hct 32.6 L, MCV 90.8, MCH 28.9, MCHC 31.9, RDW 14.0, Plt Count 258, MPV 9.0, Neut % (Auto) 70.1, Lymph % (Auto) 24.9, Frio % (Auto) 3.8, Eos % (Auto) 0.7, Baso % (Auto) 0.5, Neut # (Auto) 10.4 H, Lymph # (Auto) 3.7, Frio # (Auto) 0.6, Eos # (Auto) 0.1, Baso # (Auto) 0.1 I & O for Last 24 hours: Intake & Output 08/02/22 08/03/22 08/04/22 08/05/22 23:59 23:59 23:59 23:59 Intake Total 1700 / 1700 Output Total 500 / 500 Balance 1200 / 1200 Weight 269 lb Constitutional Constitutional: no acute distress *Routine HEENT Exam Head: Present normocephalic and atraumatic Eye: Absent conjunctivae pink ENT: Present mucous membranes moist *Routine Neck Exam Neck: Present full ROM *Routine Respiratory Exam Respiratory: Present CTA bilaterally and normal respiratory effort *Routine Cardiovascular Exam Cardiovascular: Present RRR *Routine Abdominal Exam Abdominal: Present soft and normoactive bowel sounds; Absent tenderness or distended Comments: Pfannenstiel incision clean/dry/intact with steri strips in place. No drainage. Uterine fundus firm and below umbilicus *Routine Rectal Exam Patient deferred: visual exam *Routine Exam Patient deferred: external exam
--- NOTE | 2022-08-05 10:20 | SW/DCPLANNER ---
Addendum entered by Afia Coley 08/09/22 12:39: This case did meet criteria for investigation per Central Intake. Addendum entered by Afia Coley 08/09/22 11:27: Infant cord screen resulted positive for Cocaine and Benzo. I have reported this to Central Intake w/ ID # [id number]. Original Note: I received a referral for this patient regarding positive for THC and oxycodone. Patient tested positive for oxy and thc on 12/22/21 and thc on 01/19/22. Patient urine drug screen was negative on 02/16/22, 05/27/22 and 08/04/22. Patient stated that Oxy and THC use was prior to finding out she was and has not had any drug use since. urine drug screen was negative at admission. I will follow up with cord screen once resulted. female (Mk Bailey) was born on 08/[birth year]. 's father (Romulo Bailey II) is involved. Patient, Romulo, and other son (Levy Bailey) will reside at [address] [place] [address] in [place] [address]. Patient's contact number is [phone]. Patient stated that she has not had any Social Service involvement in the past. Patient is established with [facility]. Patient has the following items: crib, carseat, clothing, diapers and will be bottle feeding. Patient will discharge home today. Patient's nurse (So) stated that patient is appropriate with infant.
== END 2022-08-05 18:54 | disposition home or self-care (01) | DRG 784 ==
PROVIDERS: Admitting Provider Obstetrics & Gynecology; Visit Provider Obstetrics & Gynecology
PROC: 10D00Z1 Extraction of Products of Conception, Low, Open Approach (ICD-10-PCS; CPT 59514; principal; 2022-08-04 07:30)
DX: O24.415 Gestational diabetes mellitus in pregnancy, controlled by oral hypoglycemic drugs (principal); O99.324 Drug use complicating childbirth; O34.211 Maternal care for low transverse scar from previous cesarean delivery; O99.334 Smoking (tobacco) complicating childbirth; Z3A.39 39 weeks gestation of pregnancy; Z37.0 Single live birth; F12.90 Cannabis use, unspecified, uncomplicated; O99.344 Other mental disorders complicating childbirth; Z30.2 Encounter for sterilization; F32.A Depression, unspecified; O99.214 Obesity complicating childbirth; E66.01 Morbid (severe) obesity due to excess calories; N85.8 Other specified noninflammatory disorders of uterus; F17.210 Nicotine dependence, cigarettes, uncomplicated
CPT/HCPCS: 59514; 58700; 36415; 59025; 80305; 81001; 82800; 82962; 85007; 85025; 86850; 88302; 88307; C9803; J1756; U0003; U0005

== ENCOUNTER 2023-12-30 16:23 | Emergency (ER) | payer OTHER, SELFPAY ==
[2023-12-30 16:25] VITALS: BP 135/69; PULSE 86; RESP 20; TEMP 36.6; O2SAT 96; BMI 34.7
--- NOTE | 2023-12-30 16:30 | ED_ITS ---
Discharge Plan Disposition Patient Disposition: Home, Self-Care Condition: Good Prescriptions Prescriptions: New azithromycin [Zithromax] 250 mg tablet 250 mg PO UD DOSE PK Qty: 6 0RF Rx Instructions: Take two (2) tablets today, then one (1) tablet days #2 thru #5 methylprednisolone 4 mg Tablets,Dose Pack 4 mg PO DIRECTED 6 Days Qty: 21 0RF Rx Instructions: Take 1 pack as directed for 6 days Referrals Follow up/Referrals: Dorita Simpson APRN [Primary Care Provider] - See instructions Activity Restrictions/Add. Instructions Additional Instructions/Restrictions: Drink plenty of fluids. Take tylenol or ibuprofen for pain or fever. Take the medications as directed. Follow up with your regular doctor. GO TO THE ER FOR ANY WORSENING SYMPTOMS Don't start the oral steroids (medrol dose pack) until tomorrow since you had the shots here today. Clinical Impressions Clinical Impression: Migraine, Otitis media Stand Alone Forms Stand Alone Forms: Work/School Release Instructions Patient Instructions: Migraine -- Adult, Promethazine, Ketorolac Injection, Dexamethasone Injection Discharge ED Provider: Zane Zapien [facility] HPI General Stated complaint: h/a, right ear pain Time Seen by Provider: 12/30/23 16:30 History of Present Illness Provider Complaint: She states that for the past 5 days she has had right ear pain. For the past 1 day she has had migraine headache. She has a history of migraines. She states that she usually takes naproxen for her migraines but it has not relieved it this time. Related Data Previous Rx's Medication Instructions Recorded azithromycin 250 mg tablet 250 mg PO UD DOSE PK #6 tabs 12/30/23 (Zithromax) methylprednisolone 4 mg tablets in 4 mg PO DIRECTED 6 days #21 tabs 12/30/23 a dose pack Allergies Allergy/AdvReac Type Severity Reaction Status Date / Time Penicillins Allergy Severe Swelling Verified 11/08/23 14:10 of Lip/Tongue/Throat [facility] Disclaimer: The information contained in this section may have been updated after the patient was seen, as this information can be updated by other users. Medical History examination following delivery Morbid obesity with BMI of 40.0-44.9, adult Low back pain Weight gain, abnormal Furuncle Acute blood loss anemia Request for sterilization Gestational diabetes A2 No significant past medical history Surgical History H/O tubal ligation History of Family History Other No significant family history Social History Smoking Status: Current every day smoker tobacco type: cigarettes packs per day: 1 alcohol intake: never substance use type: former substance user and marijuana current occupational status: unemployed Travel in the last 8 weeks: None household members: family housing: apartment ROS Obtained: Yes All systems reviewed & no additional complaints except as documented Constitutional Constitutional: Denies chills, Reports fever(s), Reports headache(s) and Reports poor appetite Eyes Eyes: Denies eye discharge ENT Ears, Nose, Mouth, and Throat: Denies ear discharge, Reports otalgia, Reports headache(s), Denies hearing loss, Denies sinus pain and Reports sore throat Cardiovascular Cardiovascular: Denies chest pain and Denies dyspnea Respiratory Respiratory: Denies chest congestion, Reports cough and Denies dyspnea Gastrointestinal Gastrointestingal: Denies abdominal pain, diarrhea, nausea or vomiting Musculoskeletal Musculoskeletal: Denies arthralgias Integumentary/Breasts Skin/Breast: Denies rash Neurologic Neurologic: Reports as per HPI and Reports headache(s) Physical Exam General General appearance: alert and in no apparent distress Head Head exam: atraumatic, normocephalic and normal inspection Eye Eye exam: Present normal appearance; Absent PERRL or EOMI ENT ENT exam: Present mucous membranes moist and normal external ear exam Expanded ENT Exam TM/Canal exam: Bilateral TM: erythema, bulging and effusion Nose exam: Absent sinus tenderness Nasal speculum exam: Bilateral: normal Mouth exam: Present normal external inspection and other; Absent drooling Teeth exam: Present normal inspection Throat exam: Present tonsillar erythema and tonsillomegaly Neck Neck exam: Present normal inspection, full ROM and trachea midline; Absent tenderness, meningismus or lymphadenopathy Chest Chest inspection: Present normal inspection and symmetric chest wall rise; Absent tenderness Respiratory Respiratory exam: Present normal lung sounds bilaterally; Absent respiratory distress, wheezes or stridor Cardiovascular Cardiovascular exam: Present regular rate, normal rhythm and normal heart sounds; Absent tachycardia or irregular rhythm Abdominal Exam Abdominal exam: Present soft and normal bowel sounds; Absent distention, tenderness, guarding, rebound or rigidity Extremities Exam Extremities exam: Present normal inspection and normal capillary refill; Absent tenderness, joint swelling or calf tenderness Back Exam Back exam: Present normal inspection and full ROM; Absent tenderness, CVA tenderness (R) or CVA tenderness (L) Neurological Exam Neurological exam: Present alert, oriented X3, CN II-XII intact, normal gait and reflexes normal; Absent motor sensory deficit Expanded Neurological Exam Speech: Present fluid speech Cranial nerves: Normal: EOM function (II, III, IV, ), facial sensation (V), facial palsy (VII), gag reflex (IX), spinal accessory function (XI) and tongue deviation (XII) Cerebellar function: normal gait Motor strength - LUE: 5/5 Motor strength - RUE: 5/5 Motor strength - LLE: 5/5 Motor strength - RLE: 5/5 DTR: 2+: biceps (L), biceps (R), patellar (L), patellar (R), Achilles tendon (L) and Achilles tendon (R) Psychiatric Psychiatric exam: Present normal affect and normal mood Skin Skin exam: Present warm, dry, intact and normal color Lymphatic Lymphatic Findings: no adenopathy Medical Decision Making Medical Records Medical records reviewed: No I reviewed the patient's medical records. Joseph Inquiry Pt receiving controlled substance: No
[2023-12-30] MEDS: DEXAMETHASONE 4MG/ML 1ML VIAL 8 MG IM (17:30)
[2023-12-30] MEDS: PROMETHAZINE HCL 25MG/ML 1ML VIAL 25 MG IM (17:30)
[2023-12-30] MEDS: KETOROLAC 60MG/2ML VIAL 60 MG IM (17:30)
[2023-12-30 17:31] VITALS: BP 135/69; PULSE 86; RESP 20; TEMP 36.6; O2SAT 96
== END 2023-12-30 17:50 | disposition home or self-care (01) ==
PROVIDERS: Emergency Provider Nurse Practitioner Family; PCP Nurse Practitioner Family
DX: G43.909 Migraine, unspecified, not intractable, without status migrainosus (principal); H66.91 Otitis media, unspecified, right ear
CPT/HCPCS: 96372; 99212; 99214; G0463

== ENCOUNTER 2024-02-07 14:08 | Emergency (ER) | payer OTHER, SELFPAY ==
[2024-02-07 14:25] VITALS: BP 103/56; PULSE 66; RESP 19; TEMP 36.5; O2SAT 98; BMI 34.5
--- NOTE | 2024-02-07 14:44 | ED_ITS ---
Discharge Plan Disposition Patient Disposition: Home, Self-Care Condition: Good Prescriptions Prescriptions: New cefdinir 300 mg capsule 300 mg PO Q12H 10 Days Qty: 20 0RF No Action azithromycin [Zithromax] 250 mg tablet 250 mg PO UD DOSE PK Qty: 6 0RF Rx Instructions: Take two (2) tablets today, then one (1) tablet days #2 thru #5 methylprednisolone 4 mg Tablets,Dose Pack 4 mg PO DIRECTED 6 Days Qty: 21 0RF Rx Instructions: Take 1 pack as directed for 6 days Referrals Follow up/Referrals: Bj Price MD [Primary Care Provider] - See instructions Clinical Impressions Clinical Impression: Acute suppur left otitis media w/spontan rupture of tympanic membrane Instructions Patient Instructions: Middle Ear Infection Discharge ED Provider: Carlee Bernal [facility] General Stated complaint: ear pain, ear bleeding and drainage, headache Mode of Arrival: Ambulatory Source of Information: Patient Limitations: No Limitations Time Seen by Provider: 02/07/24 14:32 Description of Symptoms (Recalled from Triage Doc. by RN): PATIENT C/O HEADACHE AND BLEEDING FROM LEFT EAR X 2 DAYS HEENT Symptoms (Recalled from RN notes): Yes Resp Symptoms (Recalled from RN notes): No Skin Symptoms (Recalled from RN notes): No MS Symptoms (Recalled from RN notes): No Functional Status (Recalled from RN notes): WNL History of Present Illness Provider Complaint: Pt reports that her left ear has been hurting for the last couple of days and last night she had blood coming out of her ear. Related Data Previous Rx's Medication Instructions Recorded azithromycin 250 mg tablet 250 mg PO UD DOSE PK #6 tabs 12/30/23 (Zithromax) methylprednisolone 4 mg tablets in 4 mg PO DIRECTED 6 days #21 tabs 12/30/23 a dose pack cefdinir 300 mg capsule 300 mg PO Q12H 10 days #20 caps 02/07/24 Allergies Allergy/AdvReac Type Severity Reaction Status Date / Time Penicillins Allergy Severe Swelling Verified 11/08/23 14:10 of Lip/Tongue/Throat Worker's Comp Is this a Worker's Comp case?: No [facility] Disclaimer: The information contained in this section may have been updated after the patient was seen, as this information can be updated by other users. Medical History (Updated 02/07/24 @ 14:46 by Carlee Bernal APRN) Asthma examination following delivery Morbid obesity with BMI of 40.0-44.9, adult Low back pain Weight gain, abnormal Furuncle Acute blood loss anemia Request for sterilization Gestational diabetes No significant past medical history Surgical History (Updated 02/07/24 @ 14:40 by Sanjuana Romano RN) History of tympanostomy tube placement History of tubal ligation History of tonsillectomy History of section H/O tubal ligation History of Family History Other No significant family history Social History Smoking Status: Current every day smoker tobacco type: cigarettes packs per day: 1 alcohol intake: never substance use type: former substance user and marijuana current occupational status: unemployed Travel in the last 8 weeks: None household members: family housing: apartment ROS Obtained: Yes All systems reviewed & no additional complaints except as documented Constitutional Constitutional: Reports system reviewed and no additional complaints, except as documented and Reports malaise Eyes Eyes: Reports system reviewed and no additional complaints, except as documented ENT Ears, Nose, Mouth, and Throat: Reports system reviewed and no additional complaints, except as documented and Reports otalgia Cardiovascular Cardiovascular: Reports system reviewed and no additional complaints, except as documented Respiratory Respiratory: Reports system reviewed and no additional complaints, except as documented Gastrointestinal Gastrointestingal: Reports system reviewed and no additional complaints, except as documented Genitourinary Female Genitourinary: Reports system reviewed and no additional complaints, except as documented Musculoskeletal Musculoskeletal: Reports system reviewed and no additional complaints, except as documented Integumentary/Breasts Skin/Breast: Reports system reviewed and no additional complaints, except as documented Neurologic Neurologic: Reports system reviewed and no additional complaints, except as documented Endocrine Endocrine: Reports system reviewed and no additional complaints, except as documented Hematologic/Lymphatic Henatologic/Lymphatic: Reports system reviewed and no additional complaints, except as documented Allergic/Immunologic Allergic/Immunologic: Reports system reviewed and no additional complaints, except as documented Physical Exam General General appearance: alert Comment: ill appearing Head Head exam: atraumatic and normocephalic Eye Eye exam: Present normal appearance ENT ENT exam: Present mucous membranes dry Expanded ENT Exam External ear exam: Present pain with movement TM/Canal exam: Left TM: erythema, perforation, canal discharge (bloody discharge) and canal tenderness Nasal speculum exam: Bilateral: normal Mouth exam: Present normal external inspection Teeth exam: Present normal inspection Throat exam: Present normal inspection Neck Neck exam: Present normal inspection Chest Chest inspection: Present normal inspection and symmetric chest wall rise Respiratory Respiratory exam: Present normal lung sounds bilaterally Cardiovascular Cardiovascular exam: Present regular rate and normal rhythm Abdominal Exam Abdominal exam: Present soft and distention Extremities Exam Extremities exam: Present normal inspection Back Exam Back exam: Present normal inspection Neurological Exam Neurological exam: Present alert and oriented X3 Psychiatric Psychiatric exam: Present normal affect and normal mood Skin Skin exam: Present warm, dry and intact Lymphatic Lymphatic Findings: no adenopathy Medical Decision Making Joseph Inquiry Pt receiving controlled substance: No Joseph was queried for this patient: No Vital Signs: 02/07/24 14:25 Temperature 97.7 F Temperature Source Oral Pulse Rate [Left Brachial] 66 Respiratory Rate 19 Blood Pressure [Left Arm] 103/56 L Blood Pressure Mean [Left Arm] 71 Blood Pressure Source [Left Arm] Automatic Cuff Blood Pressure Position [Left Arm] Sitting 02 Sat by Pulse Oximetry 98 Oxygen Delivery Method Room Air
[2024-02-07 14:45] VITALS: BP 103/56; PULSE 66; RESP 19; TEMP 36.5; O2SAT 98
== END 2024-02-07 14:50 | disposition home or self-care (01) ==
PROVIDERS: Emergency Provider Nurse Practitioner Family; PCP Family Medicine
DX: H66.012 Acute suppurative otitis media with spontaneous rupture of ear drum, left ear (principal); H92.02 Otalgia, left ear; F17.210 Nicotine dependence, cigarettes, uncomplicated
CPT/HCPCS: 99212; 99214; G0463